=== PATIENT | male | born 1970 | race Caucasian/White ===

== ENCOUNTER 2016-10-17 13:58 | Inpatient (IN) | payer OTHER ==
[~2016-10-17] VITALS: Ht 172.7 cm; Wt 132.2 kg
[~2016-10-17 13:58] MED LIST: ASPIRIN ADULT L81 M4 PO; FISH OIL1 CAP PO; MOT400 PO; MULTI VITAMINS1 TA1 PO; NORCO1 TA2 PO
[2016-10-17 14:52] LABS: BASOPHIL % 0.5 % (0-2); PLATELET COUNT 351 x10^3mcL (130-400); RED CELL DISTRIBUTION WIDTH 14.3 % (11.5-14.5)
[2016-10-17 15:07] LABS: CALCIUM 10.9 mg/dL (8.5-10.1); CARBON DIOXIDE 24.9 mmol/L (21-32); CHLORIDE SERUM 102 mmol/L (98-107); GFR1 > 60 mL/min; GLUCOSE SERUM 124 mg/dL (74-106); POTASSIUM SERUM 3.8 mmol/L (3.5-5.1); SODIUM SERUM 138 mmol/L (136-145)
[2016-10-17 15:11] LABS: ALBUMIN 4.1 g/dL (3.4-5.0); ALKALINE PHOSPHATASE 84 U/L (46-116); ALT/SGPT 40 U/L (16-63); AMYLASE 76 U/L (25-115); AST/SGOT 30 U/L (15-37); LIPASE 110 IU/L (73-393)
[2016-10-17 15:14] LABS: TOTAL PROTEIN, SERUM 8.6 g/dL (6.4-8.2)
[2016-10-17 17:40] VITALS: BP 150/70
[2016-10-17 17:45] VITALS: Ht 172.7 cm; Wt 132.2 kg
[2016-10-17 18:53] LABS: MAGNESIUM 2.2 mg/dL (1.8-2.4); PHOSPHOROUS 2.3 mg/dL (2.5-4.9)
[2016-10-17 19:00] LABS: T3 TOTAL 1.24 ng/mL
[2016-10-17 19:02] LABS: FREE T4 1.08 ng/dL (0.76-1.46); FREE THYROXINE INDEX 3.1 ug/dL (1.4-4.5); T4(THYROXINE) 9.5 ug/dL (4.7-13.3)
[2016-10-17 21:12] VITALS: BP 125/86
[2016-10-18 05:43] VITALS: BP 116/72
[2016-10-18 06:39] LABS: BASOPHIL % 0.1 % (0-2); PLATELET COUNT 283 x10^3mcL (130-400)
[2016-10-18 06:58] LABS: RED CELL DISTRIBUTION WIDTH 14.8 % (11.5-14.5)
[2016-10-18 07:03] LABS: CALCIUM 8.7 mg/dL (8.5-10.1); CARBON DIOXIDE 29.2 mmol/L (21-32); CHLORIDE SERUM 107 mmol/L (98-107); CHOLESTEROL 152 mg/dL (<200); CHOLESTEROL/HDL RATIO 3.2; CREATININE SERUM 1.2 mg/dL (0.7-1.3); GFR1 > 60 mL/min; GLUCOSE SERUM 99 mg/dL (74-106); HDL CHOLESTEROL 48 mg/dL (40-60); SODIUM SERUM 143 mmol/L (136-145); TRIGLYCERIDES 82 mg/dL (<150)
[2016-10-18 10:00] VITALS: BP 116/75
[2016-10-18 15:00] VITALS: BP 116/72
[2016-10-18 18:42] VITALS: BP 126/76
[2016-10-18 20:03] VITALS: BP 115/69
[2016-10-19] VITALS: BP 115/65
[2016-10-19 05:30] VITALS: BP 120/73
[2016-10-19 06:09] LABS: BASOPHIL % 0.3 % (0-2); PLATELET COUNT 267 x10^3mcL (130-400)
[2016-10-19 06:42] LABS: RED CELL DISTRIBUTION WIDTH 14.6 % (11.5-14.5)
[2016-10-19 07:04] LABS: CALCIUM 8.2 mg/dL (8.5-10.1); CARBON DIOXIDE 26.9 mmol/L (21-32); CHLORIDE SERUM 105 mmol/L (98-107); GFR1 > 60 mL/min; GLUCOSE SERUM 82 mg/dL (74-106); MAGNESIUM 2.1 mg/dL (1.8-2.4); PHOSPHOROUS 2.5 mg/dL (2.5-4.9); POTASSIUM SERUM 3.5 mmol/L (3.5-5.1); SODIUM SERUM 139 mmol/L (136-145)
[2016-10-19 10:14] VITALS: BP 118/77
[2016-10-19 15:41] VITALS: BP 123/72
[2016-10-19 17:42] VITALS: BP 138/90
[2016-10-19 20:35] VITALS: BP 119/80
[2016-10-20 05:42] VITALS: BP 112/80
[2016-10-20 06:24] LABS: BASOPHIL % 0.5 % (0-2); PLATELET COUNT 234 x10^3mcL (130-400)
[2016-10-20 06:33] LABS: CALCIUM 8.1 mg/dL (8.5-10.1); CARBON DIOXIDE 27.7 mmol/L (21-32); CHLORIDE SERUM 103 mmol/L (98-107); GFR1 > 60 mL/min; GLUCOSE SERUM 96 mg/dL (74-106); POTASSIUM SERUM 3.8 mmol/L (3.5-5.1); SODIUM SERUM 137 mmol/L (136-145)
[2016-10-20 09:56] VITALS: BP 108/66
[2016-10-20 18:23] VITALS: BP 134/78
[2016-10-20 21:43] VITALS: BP 119/81
[2016-10-21 04:52] VITALS: BP 106/67
[2016-10-21 09:33] VITALS: BP 118/71
[2016-10-21] MEDS ORDERED: LIO10 PO (12:52)
[2016-10-21] MEDS ORDERED: NOR10T PO ×2 (12:52→14:00)
[2016-10-21] MEDS ORDERED: CAR1 PO (12:54)
[2016-10-21] MEDS ORDERED: PROTONIX40 MG/Pac1 PO (12:55)
[2016-10-21] MEDS ORDERED: THE MEDICINE S300 MG PO (12:59)
[2016-10-21] MEDS ORDERED: ASPIRIN LOW DOS81 MG PO (12:59)
[2016-10-21 13:34] VITALS: BP 118/71
== END 2016-10-21 14:05 | disposition home or self-care (01) | DRG 392 ==
LOC: ED 13:58 → MU 16:40 → DU 16:40 → MU 10-20 09:00
PROVIDERS: Emergency Medicine; Family Medicine; Internal Medicine; ADMIT Family Medicine
PROC: 0DB78ZX Excision of Stomach, Pylorus, Via Natural or Artificial Opening Endoscopic, Diagnostic (ICD-10-PCS; principal; 2016-10-18 08:30)
DX: K29.70 Gastritis, unspecified, without bleeding (principal); Z68.41 Body mass index [BMI] 40.0-44.9, adult; K20.9 Esophagitis, unspecified; K44.9 Diaphragmatic hernia without obstruction or gangrene; E83.39 Other disorders of phosphorus metabolism; G89.29 Other chronic pain; F43.9 Reaction to severe stress, unspecified; D72.829 Elevated white blood cell count, unspecified; M54.9 Dorsalgia, unspecified; M06.9 Rheumatoid arthritis, unspecified; G47.33 Obstructive sleep apnea (adult) (pediatric); E66.9 Obesity, unspecified; Q63.1 Lobulated, fused and horseshoe kidney
CPT/HCPCS: 43235; 83880; 84439; 94150; G0480; J1170; J1200; J1610; J1885; J2060; J2250; J2310; J2405; J2550; J2765; J2930; J3010; J3490; J7030; Q0092; Q0163; Q9966; Q9967